=== PATIENT | male | born 1950 | race Caucasian/White ===

== ENCOUNTER 2020-03-18 10:19 | Emergency (ER) | payer MEDICARE ==
[~2020-03-18 10:19] MED LIST: Iopamidol 370 76% 125 ML VIAL FS ONE; Sodium Chloride 0.9% 100 ML BAG ONE
[2020-03-18 11:24] LABS: #Basophils 0.1 thou/uL (0.0-0.2); #Eosinphils 0.1 thou/uL (0.0-0.7); #Lymphocytes 1.5 thou/uL (1.20-3.40); #Neutrophils 8.3 thou/uL (1.40-6.50); %Basophils 1.2 % (0.0-1.0); %Eosinophils 1.1 % (0.0-10.0); %Lymphocytes 13.8 % (21.0-51.0); %Monocytes 8.8 % (0.0-10.0); %Neutrophils 75.1 % (42.0-75.0); Hemoglobin 16.6 g/dL (14.0-18.0); Mean Corpuscular HGB CONC 32.4 g/dL (32.0-36.0); Mean Corpuscular Hemoglobin 29.6 pg (27.0-31.0); Mean Corpuscular Volume 91.2 fL (78.0-98.0); Mean Platelet Volume 8.3 fL (7.4-10.4); Platelet Count 194 thou/uL (130-400); RBC Distribution Width 13.4 % (11.5-14.5); Red Blood Cell (RBC) Count 5.63 mill/uL (4.70-6.10); White Blood Cell (WBC) Count 11.1 thou/uL (4.8-10.8)
[2020-03-18 11:34] LABS: ALT (SGPT) 11 U/L (8-55); AST (SGOT) 15 U/L (5-34); Albumin 4.2 g/dL (3.4-4.8); Alkaline Phosphatase 118 U/L (40-110); Anion Gap 18 mmol/L (10-20); BUN (Urea Nitrogen) 8 mg/dL (8.4-25.7); Bilirubin, Total 1.2 mg/dL (0.2-1.2); Calc. Creatinine Clearance 0 mL/min (70-130); Calcium 8.9 mg/dL (7.8-10.44); Carbon Dioxide 17 mmol/L (23-31); Chloride 104 mmol/L (98-107); Glucose 98 mg/dL (80-115); Potassium 4.4 mmol/L (3.5-5.1); Protein, Total 7.2 g/dL (5.8-8.1); Sodium 135 mmol/L (136-145)
[2020-03-18 11:52] LABS: CKMB 2.3 ng/mL (0-6.6)
[2020-03-18] MEDS ORDERED: Acetaminophen 325 MG TAB ONE (12:15)
[2020-03-18] MEDS ORDERED: Aspirin Chewable 81 MG TAB ONE (12:15)
[2020-03-18] MEDS ORDERED: Azithromycin 500 MG VIAL ONE (12:15)
[2020-03-18] MEDS ORDERED: cefTRIAXone\\ROCEPHIN 2 GM VIAL ONE (12:15)
[2020-03-18 12:35] LABS: Bilirubin Negative (Negative); Blood, Urine Negative (Negative); Clarity Clear (Clear); Glucose, Urine (Dipstick) Negative (Negative); Ketone, Urine Negative (Negative); Leukocyte Negative (Negative); Nitrite Negative (Negative); Protein, Urine (Dipstick) Negative (Neg-Trace); Specific Gravity, Urine 1.015 (1.005-1.030)
[2020-03-18 13:12] LABS: SARS-CoV-2 NAA Rapid Test Not Detected (NotDetected)
--- NOTE | 2020-03-18 13:37 | RAD ---
PORTABLE CHEST: HISTORY: Dyspnea. COMPARISON: No comparison. FINDINGS: Hazy [id number] infiltrate seen in the left mid and lower lung. Evidence of small bilateral e ffusions. Borderline cardiomegaly with postop sternotomy change. Vascularity upper normal without overt conges tion. IMPRESSION: Suspect hazy [id number] infiltrates in the left mid and lower lung. Small bilateral pleural e ffusions. Followup recommended. POS: AGW
--- NOTE | 2020-03-18 14:17 | CT ---
CTA CHEST WITH CONTRAST: Axial tomograms were obtained through the chest following angio protocol with multiplanar reconstruct ion and 3D post processing. INDICATION: Dyspnea with elevated D-dimer. FINDINGS: Pulmonary arteries show adequate opacification. No evidence of pulmonary embolus identified. Thorac ic aorta is unremarkable with no dissection or aneurysm. Mediastinum shows nonspecific mediastinal and hilar adenopathy. There is a small to moderate-sized right pleural effusion. Mild basilar atelectasis on the right. Lung valentin show diffuse interstitial prominence which may represent interstitial congestion and mild edema. There is a small left effusion and there is fluid within the left major fissure with a rounded area o f opacification measuring 3-4 cm along the fissure. This appeared to be a loculated fluid collection within the fissure with densities recorded at -10 Hounsfield units. Images through the upper abdomen show calcified gallstones in the gallbladder which his only partial ly imaged. There is a right renal cystic lesion measuring 2.4 cm, incompletely imaged. Osseous stru ctures unremarkable. IMPRESSION: 1. No evidence of pulmonary embolus. 2. Cardiomegaly with mild vascular and interstitial congestion. 3. Bilateral effusions, larger on the right. There is fluid within the left major fissure with a lo culated area of density along the fissure suggesting loculated fluid. Followup is recommended to ens ure resolution. 4. Cholelithiasis is noted incidentally. POS: AGW
[2020-03-18] MEDS ORDERED: Furosemide 40 MG/4 ML VIAL ONE (14:20)
== END 2020-03-18 17:59 | disposition short-term general hospital (02) ==
LOC: MADERS 10:19
DX: A41.9 Sepsis, unspecified organism (principal); I50.9 Heart failure, unspecified; J81.1 Chronic pulmonary edema; R77.8 Other specified abnormalities of plasma proteins; R91.8 Other nonspecific abnormal finding of lung field; I25.10 Atherosclerotic heart disease of native coronary artery without angina pectoris; J44.9 Chronic obstructive pulmonary disease, unspecified; E78.00 Pure hypercholesterolemia, unspecified; Z87.891 Personal history of nicotine dependence
CPT/HCPCS: 0240U; 71045; 71275; 81003; 82553; 83605; 83880; 84484; 85379; 87040; 93005; 94760; 96365; 96375; 99285; 80053; 84443; 85025; J0456; J0696; J1940; J3490; J7050; Q9967